=== PATIENT | female | born 2005 | race Two or more races ===

== ENCOUNTER 2023-12-01 11:07 | Outpatient (CLI) | payer OTHER ==
[~2023-12-01 11:07] MED LIST: Magnevist 469MG/ML 20 ML VIAL ONE
== END 2023-12-01 11:08 | disposition home or self-care (01) ==
LOC: MRI 11:07
PROVIDERS: ATTEND Plastic Surgery
DX: I63.9 Cerebral infarction, unspecified (principal); R93.0 Abnormal findings on diagnostic imaging of skull and head, not elsewhere classified
CPT/HCPCS: 70553; 76377; A9579